=== PATIENT | male | born 1980 | race Two or more races ===

== ENCOUNTER 2019-04-13 07:21 | Emergency (ER) | payer OTHER ==
[~2019-04-13] VITALS: Ht 165.1 cm; Wt 79.4 kg
[2019-04-13] MEDS ORDERED: LEXAPRO10 MG ORAL (07:27)
--- NOTE | 2019-04-13 07:28 | NUR ---
ED Nurse Note:pt. was BIBA from home with behaivioral complain- he was smelling pison or gas, pt. stoped taking psych meds 2 months ago and was seen at [facility] 2 days ago with similar complain, on arrival pt. is A/Ox4 ambulatory, personal belongings placed in locker #3
--- NOTE | 2019-04-13 07:36 | Emergency Room Report ---
History of Present Illness General Chief Complaint: Agitation Source: Patient, EMS Present Illness HPI Patient presents by paramedics for reports of agitation Upon arrival patient initially reports that he thought he smelled something at his residence throughout the discussion however the patient appears somewhat agitated and Has flight of thought Denies any chest pain or shortness of breath Denies any headache denies any vomiting Patient displays significant paranoid thoughts as well Continue to discuss needing to put away significant amount of money Also asking about different sandoval Patient denies any thoughts of killing himself on direct questioning or hurting others Allergies: Coded Allergies: No Known Allergies (Unverified , 04/13/19) Patient History Past Medical History: see triage record Reviewed Nursing Documentation: PMH: Agreed; PSxH: Agreed Nursing Documentation-PMH History Of Psychiatric Problem: Yes Review of Systems All Other Systems: limited - Other than the ones mentioned in the history of present illness all others are reviewed however they do stay limited due to the patient's mental status Physical Exam Vital Signs Date Time Temp Pulse Resp B/P (MAP) Pulse Ox O2 Delivery O2 Flow Rate FiO2 04/13/19 07:11 98.1 100 16 143/91 (108) 99 Room Air Sp02 EP Interpretation: reviewed, normal General Appearance: no apparent distress Head: normocephalic, atraumatic Eyes: bilateral eye PERRL, bilateral eye EOMI ENT: normal pharynx, no angioedema Neck: supple Respiratory: lungs clear, no retraction, no accessory muscle use Cardiovascular #1: regular rate, rhythm Gastrointestinal: non tender, soft Genitourinary: no CVA tenderness Musculoskeletal: normal inspection Neurologic: alert, responsive Psychiatric: other - Anxious and bizarre thought process Skin: no rash Lymphatic: no adenopathy Medical Decision Making Diagnostic Impression: Primary Impression: Behavior concern Additional Impression: Medical clearance for psychiatric admission ER Course Patient presents with fairly bizarre thought process flight of thought Appears paranoid Denies any previous psychiatric history Patient was reported to be in [facility] recently as well Extensive blood work is initiated to further medically clear the patient He does show positive for amphetamines otherwise at this time medically cleared I feel the patient would benefit from evaluation PET team has presented and discussed closely with the patient They feel the patient does not meet further criteria for psychiatric evaluation or involuntary hold Patient has been medically cleared as well and at this time is disposition for close outpatient follow-up Labs Test 04/13/19 07:40 04/13/19 07:50 White Blood Count 6.6 K/UL (4.8-10.8) Red Blood Count 5.84 M/UL (4.70-6.10) Hemoglobin 16.7 G/DL (14.2-18.0) Hematocrit 49.0 % (42.0-52.0) Mean Corpuscular Volume 84 FL (80-99) Mean Corpuscular Hemoglobin 28.7 PG (27.0-31.0) Mean Corpuscular Hemoglobin Concent 34.2 G/DL (32.0-36.0) Red Cell Distribution Width 11.4 % (11.6-14.8) Platelet Count 353 K/UL (150-450) Mean Platelet Volume 6.3 FL (6.5-10.1) Neutrophils (%) (Auto) 64.1 % (45.0-75.0) Lymphocytes (%) (Auto) 25.7 % (20.0-45.0) Monocytes (%) (Auto) 9.2 % (1.0-10.0) Eosinophils (%) (Auto) 0.2 % (0.0-3.0) Basophils (%) (Auto) 0.8 % (0.0-2.0) Sodium Level 141 MMOL/L (136-145) Potassium Level 3.5 MMOL/L (3.5-5.1) Chloride Level 103 MMOL/L (98-107) Carbon Dioxide Level 22 MMOL/L (21-32) Anion Gap 16 mmol/L (5-15) Blood Urea Nitrogen 18 mg/dL (7-18) Creatinine 1.3 MG/DL (0.55-1.30) Estimat Glomerular Filtration Rate > 60 mL/min (>60) Glucose Level 90 MG/DL (74-106) Calcium Level 9.2 MG/DL (8.5-10.1) Total Bilirubin 1.3 MG/DL (0.2-1.0) Direct Bilirubin 0.3 MG/DL (0.0-0.3) Aspartate Amino Transf (AST/SGOT) 66 U/L (15-37) Alanine Aminotransferase (ALT/SGPT) 64 U/L (12-78) Alkaline Phosphatase 66 U/L (46-116) Total Protein 7.9 G/DL (6.4-8.2) Albumin 4.1 G/DL (3.4-5.0) Globulin 3.8 g/dL Albumin/Globulin Ratio 1.1 (1.0-2.7) Salicylates Level < 0.2 ug/mL (2.8-20) Acetaminophen Level < 2 MCG/ML (10-30) Serum Alcohol < 3 mg/dL Urine Opiates Screen Negative (NEGATIVE) Urine Barbiturates Screen Negative (NEGATIVE) Phencyclidine (PCP) Screen Negative (NEGATIVE) Urine Amphetamines Screen Positive (NEGATIVE) Urine Benzodiazepines Screen Positive (NEGATIVE) Urine Cocaine Screen Negative (NEGATIVE) Urine Marijuana (THC) Screen Negative (NEGATIVE) Last Vital Signs Date Time Temp Pulse Resp B/P (MAP) Pulse Ox O2 Delivery O2 Flow Rate FiO2 04/13/19 07:11 98.1 100 16 143/91 (108) 99 Room Air Status: improved Disposition: HOME, SELF-CARE Condition: Improved Additional Instructions: Patient is provided with the discharge instructions notified to follow up with primary doctor in the next 2-3 days otherwise return to the er with any worsening symptoms. Please note that this report is being documented using [employer] technology. This can lead to erroneous entry secondary to incorrect interpretation by the dictating instrument. Fox Astudillo DO Apr 13, 2019 07:36
[2019-04-13 07:47] VITALS: BP 143/91
--- NOTE | 2019-04-13 07:51 | NUR ---
ED Nurse Note:blood and urine sent to labs
[2019-04-13 08:08] LABS: BASOPHILS % (AUTO) 0.8 % (0.0-2.0); EOSINOPHILS % (AUTO) 0.2 % (0.0-3.0); HEMOGLOBIN 16.7 G/DL (14.2-18.0); LYMPHOCYTES % (AUTO) 25.7 % (20.0-45.0); MEAN CORPUSCULAR VOLUME 84 FL (80-99); MONOCYTES % (AUTO) 9.2 % (1.0-10.0); NEUTROPHILS % (AUTO) 64.1 % (45.0-75.0); PLATELET COUNT 353 K/UL (150-450); RED BLOOD COUNT 5.84 M/UL (4.70-6.10); RED CELL DISTRIBUTION WIDTH 11.4 % (11.6-14.8); WHITE BLOOD COUNT 6.6 K/UL (4.8-10.8)
[2019-04-13 08:17] LABS: CHLORIDE 103 MMOL/L (98-107)
[2019-04-13 08:19] LABS: ANION GAP 16 mmol/L (5-15); BLOOD UREA NITROGEN 18 mg/dL (7-18); CALCIUM 9.2 MG/DL (8.5-10.1); CARBON DIOXIDE 22 MMOL/L (21-32); CREATININE 1.3 MG/DL (0.55-1.30); POTASSIUM 3.5 MMOL/L (3.5-5.1); SODIUM 141 MMOL/L (136-145)
[2019-04-13 08:47] LABS: ALANINE AMINOTRANSFERASE 64 U/L (12-78); ALBUMIN 4.1 G/DL (3.4-5.0); ALBUMIN/GLOBULIN RATIO 1.1 (1.0-2.7); ALKALINE PHOSPHATASE 66 U/L (46-116); ASPARTATE AMINO TRANSFERASE 66 U/L (15-37); BILIRUBIN,TOTAL 1.3 MG/DL (0.2-1.0)
[2019-04-13 08:49] LABS: BILIRUBIN,DIRECT 0.3 MG/DL (0.0-0.3)
--- NOTE | 2019-04-13 09:20 | NUR ---
ED Nurse Note:pt. was moved to non-monitored bed, report given to Brigid
[2019-04-13 09:21] VITALS: BP 134/89
--- NOTE | 2019-04-13 09:46 | NUR ---
ED Nurse Note: Pt is making phone calls, stated " I apparently live [place] Inn for 2 years with my friends. I need to call the bank to stop my debit card". Pt is cheerful and cooperative at this time.
--- NOTE | 2019-04-13 11:37 | NUR ---
ED Nurse Note: pet eval at bedside
[2019-04-13 11:42] VITALS: BP 140/79
--- NOTE | 2019-04-13 12:15 | NUR ---
ED Nurse Note: Praneeth - PET team assessed pt and confirmed that pt does NOT meet qualification to be admitted/on HOLD. Pt is to be discharged home. Appropriate weather clothes and food provided. Pt aware that he is going home. ERMD and charge nurse aware.
[2019-04-13 13:22] VITALS: BP 132/74
[2019-04-13 13:25] VITALS: BP 132/74
--- NOTE | 2019-04-13 13:26 | NUR ---
ER DISCHARGE NOTE: Patient is cleared to be discharged per ERMD, pt is aox4, on room air, with stable vital signs. pt was given dc and prescription instructions, pt was able to verbalize understanding, pt id band removed. pt is able to ambulate with steady gait. pt took all belongings.
== END 2019-04-13 13:26 | disposition home or self-care (01) ==
LOC: EDBD 07:21 → EMR 07:43
DX: R46.2 Strange and inexplicable behavior (principal)
CPT/HCPCS: 36415; 80053; 80307; 82248; 85025; G0480; G0481; Z7502; 99284

== ENCOUNTER 2019-04-14 04:00 | Emergency (ER) | payer SELFPAY ==
[~2019-04-14 04:00] MED LIST: LEXAPRO10 MG ORAL
--- NOTE | 2019-04-14 04:07 | NUR ---
Pt not in waiting room.
--- NOTE | 2019-04-14 04:19 | Emergency Room Report ---
History of Present Illness General Chief Complaint: To Be Triaged Present Illness Allergies: Coded Allergies: No Known Allergies (Unverified , 04/13/19) Medical Decision Making ER Course Patient left without being seen before triage. Disposition: LEFT W/OUT BEING SEEN Referrals: NOT CHOSEN IPA/,REFERRING (PCP) Dante Barraza MD Apr 14, 2019 04:19
== END 2019-04-14 04:10 | disposition left against medical advice (07) ==
LOC: EMR 04:10
DX: Z53.21 Procedure and treatment not carried out due to patient leaving prior to being seen by health care provider (principal)

== ENCOUNTER 2019-04-14 04:43 | Emergency (ER) | payer OTHER ==
[~2019-04-14] VITALS: Ht 172.7 cm; Wt 74.8 kg
[2019-04-14 05:10] VITALS: BP 120/78
--- NOTE | 2019-04-14 05:10 | NUR ---
ED Nurse Note: Patient walked in to Er c/o burning sensations under his feets. Patient walked with steady gait, AAO x4, VSS at this time, skin is dry warm to touch.
--- NOTE | 2019-04-14 05:15 | NUR ---
ED Nurse Note: After patient was medicated, he did not want to wait for DC papers. Patient left with steady gait, AAO x4, VSS at that point, skin is warm to touch. Patient left with all belongings.
--- NOTE | 2019-04-14 05:20 | Emergency Room Report ---
History of Present Illness General Chief Complaint: Generalized Weakness Source: Patient Present Illness HPI Patient is a 38-year-old male who presented after increased agitation. Patient reports having increased difficulty with people where he is living. He states that he had prior history of methamphetamine abuse but has not used in approximately 1 week. He reports having slept yesterday and had recently been seen at this emergency department. Patient had been evaluated by psychiatric team and was felt to be stable for discharge. Patient denies any suicidal thoughts. Allergies: Coded Allergies: No Known Allergies (Unverified , 04/13/19) Patient History Past Medical History: see triage record Reviewed Nursing Documentation: PMH: Agreed; PSxH: Agreed Nursing Documentation-PMH Past Medical History: No Stated History Review of Systems All Other Systems: limited - Poor historian Physical Exam Vital Signs Date Time Temp Pulse Resp B/P (MAP) Pulse Ox O2 Delivery O2 Flow Rate FiO2 04/14/19 04:55 98.2 98 18 120/78 (92) 94 Room Air Sp02 EP Interpretation: reviewed, normal General Appearance: normal inspection, well appearing, no apparent distress, alert, GCS 15 Head: atraumatic ENT: normal ENT inspection, hearing grossly normal, normal voice Neck: normal inspection, full range of motion, supple, no bony tend Respiratory: normal inspection, lungs clear, normal breath sounds, no respiratory distress, no retraction, no wheezing Cardiovascular #1: regular rate, rhythm, no edema Gastrointestinal: normal inspection, normal bowel sounds, non tender, soft, no guarding, no hernia Genitourinary: no CVA tenderness Musculoskeletal: normal inspection, back normal, normal range of motion Neurologic: normal inspection, alert, oriented x3, responsive, 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 Differential diagnosis included but was not limited to drug abuse, psychosis, alcohol withdrawal among others. Patient has a benign exam and does not appear to require testing at this time. He appears to have used stimulant recently. He had medication ordered which he was given but reportedly spit out. He does not appear psychotic or to be danger to self. He has place to live. Patient will be discharged home. Last Vital Signs Date Time Temp Pulse Resp B/P (MAP) Pulse Ox O2 Delivery O2 Flow Rate FiO2 04/14/19 04:55 98.2 98 18 120/78 (92) 94 Room Air Status: improved Disposition: HOME, SELF-CARE Condition: Stable Dante Barraaz MD Apr 14, 2019 05:20
[2019-04-14] MEDS ORDERED: ZyPREXA Zydis 10mg tab ORAL ONE (05:30)
== END 2019-04-14 05:25 | disposition home or self-care (01) ==
LOC: EMR 05:19
DX: F19.10 Other psychoactive substance abuse, uncomplicated (principal)
CPT/HCPCS: 99282